=== PATIENT | female | born 1985 | race Caucasian/White ===

== ENCOUNTER 2021-07-30 03:50 | Emergency (ER) | payer OTHER ==
[~2021-07-30] VITALS: Ht 162.6 cm; Wt 76.2 kg
[2021-07-30 05:07] LABS: BASOPHILS % (AUTO) 0.8 % (0.0-5.0); EOSINOPHILS % (AUTO) 4.6 % (0.0-8.0); HEMATOCRIT 37.8 % (36-48); LYMPHOCYTES % (AUTO) 33.9 % (21.0-51.0); MEAN CORPUSCULAR HEMOGLOBIN 29.6 pg (27.0-33.0); MEAN CORPUSCULAR HGB CONC 33.1 g/dL (32.0-36.0); MEAN CORPUSCULAR VOLUME 89.4 fL (79-99); MONOCYTES % (AUTO) 12.9 % (3.0-13.0); NEUTROPHILS % (AUTO) 47.5 % (40.0-77.0); PLATELET COUNT (AUTO) 201 K/uL (130-400); RED BLOOD CELL COUNT(AUTO) 4.23 MIL/uL (4.00-5.50); WHITE BLOOD COUNT (AUTO) 6.6 K/uL (4.8-10.8)
[2021-07-30 05:08] LABS: APPEARANCE,URINE Clear (CLEAR); BILIRUBIN,URINE Negative (NEGATIVE); COLOR,URINE Yellow (YELLOW); GLUCOSE, URINE (UA) Negative (NEGATIVE); KETONES,URINE Negative (NEGATIVE); LEUKOCYTE ESTERASE ,URINE Negative (NEGATIVE); NITRATE,URINE Negative (NEGATIVE); OCCULT BLOOD,URINE Negative (NEGATIVE); PH,URINE 6.5 (5.0-8.0); PROTEIN,URINE Negative (NEGATIVE); UROBILINOGEN,URINE 0.2 mg/dL (0.2-1.0)
[2021-07-30 05:19] LABS: CREATININE 0.7 mg/dL (0.5-1.5); POTASSIUM 3.9 mmol/L (3.5-5.1)
[2021-07-30 05:24] LABS: ALBUMIN 3.6 g/dL (3.5-5.0); BILIRUBIN,TOTAL 0.4 mg/dL (0.2-1.0)
[2021-07-30 06:07] VITALS: BP 102/60
[2021-07-30] MEDS ORDERED: PHENYTOIN SODIUM 100 MG ERCAP PO STA (06:08)
== END 2021-07-30 06:17 ==
LOC: EDH 03:50
DX: G40.909 Epilepsy, unspecified, not intractable, without status epilepticus (principal); Z90.89 Acquired absence of other organs; Z98.890 Other specified postprocedural states
CPT/HCPCS: 36415; 80053; 80185; 81003; 85025

== ENCOUNTER 2021-07-30 22:55 | Emergency (ER) | payer OTHER ==
[2021-07-30 22:57] VITALS: BP 108/74
[2021-07-30 23:15] LABS: EOSINOPHILS % (AUTO) 4.3 % (0.0-8.0); HEMATOCRIT 37.2 % (36-48); LYMPHOCYTES % (AUTO) 34.7 % (21.0-51.0); MEAN CORPUSCULAR HEMOGLOBIN 30.1 pg (27.0-33.0); MEAN CORPUSCULAR HGB CONC 33.6 g/dL (32.0-36.0); MEAN CORPUSCULAR VOLUME 89.6 fL (79-99); MONOCYTES % (AUTO) 11.4 % (3.0-13.0); NEUTROPHILS % (AUTO) 48.4 % (40.0-77.0); PLATELET COUNT (AUTO) 202 K/uL (130-400); RED BLOOD CELL COUNT(AUTO) 4.15 MIL/uL (4.00-5.50); RED CELL DISTRIBUTION WIDTH 13.1 % (11.0-15.5); WHITE BLOOD COUNT (AUTO) 6.3 K/uL (4.8-10.8)
[2021-07-30] MEDS ORDERED: LACTATED RINGERS 1000ML 1,000 ML IV ONE (23:30)
[2021-07-30 23:32] LABS: ALANINE AMINOTRANSFERASE 26 U/L (12-78); ALBUMIN 3.5 g/dL (3.5-5.0); ASPARTATE AMINOTRANSFERASE 15 U/L (10-37); BILIRUBIN,TOTAL 0.3 mg/dL (0.2-1.0); CARBON DIOXIDE 26 mmol/L (21-32); CHLORIDE 106 mmol/L (101-111); CREATININE 0.7 mg/dL (0.5-1.5); GLOMERULAR FILTR. RATE CALC 101 mL/min (>60); GLUCOSE,RANDOM 94 mg/dL (70-105); PHENOBARBITAL 1 mcg/mL (15-40); POTASSIUM 4.1 mmol/L (3.5-5.1); SODIUM SERUM 140 mmol/L (136-145); TOTAL PROTEIN, SERUM 6.9 g/dL (6.0-8.3); UREA NITROGEN, BLOOD 15 mg/dL (7-18)
[2021-07-30 23:38] LABS: PHENYTOIN (DILANTIN) 8.9 mcg/mL (10.0-20.0)
[2021-07-30 23:40] LABS: CARBAMAZEPINE (TEGRETOL) < 0.5 mcg/mL (4.0-12.0); VALPROIC ACID < 3 mcg/mL (50-100)
[2021-07-31] MEDS ORDERED: LEVETIRACETAM 500 MG/5 ML SD VIAL IV SCH (00:30)
[2021-07-31] MEDS ORDERED: ONDANSETRON 4MG INJ ONE (00:46)
[2021-07-31] MEDS ORDERED: ONDANSETRON 4MG INJ IVP ONE (01:00)
== END 2021-07-31 01:34 | disposition home or self-care (01) ==
LOC: EDH 22:55
DX: G40.909 Epilepsy, unspecified, not intractable, without status epilepticus (principal); Z88.0 Allergy status to penicillin; Z90.89 Acquired absence of other organs; Z98.890 Other specified postprocedural states
CPT/HCPCS: 36415; 80053; 80156; 80164; 80184; 80185; 85025; 96361; 96365; 96375; 99284; J1953; J2405; J7120

== ENCOUNTER 2021-08-03 03:02 | Emergency (ER) | payer OTHER ==
[2021-08-03] MEDS ORDERED: PHEN100C23 PO (03:16)
[2021-08-03] MEDS ORDERED: LEVE-43 PO (03:16)
[2021-08-03 03:33] LABS: BASOPHILS % (AUTO) 1.4 % (0.0-5.0); EOSINOPHILS % (AUTO) 5.8 % (0.0-8.0); HEMATOCRIT 34.4 % (36-48); LYMPHOCYTES % (AUTO) 41.7 % (21.0-51.0); MEAN CORPUSCULAR HGB CONC 33.7 g/dL (32.0-36.0); MEAN CORPUSCULAR VOLUME 88.9 fL (79-99); MONOCYTES % (AUTO) 12.8 % (3.0-13.0); NEUTROPHILS % (AUTO) 38.1 % (40.0-77.0); PLATELET COUNT (AUTO) 204 K/uL (130-400); RED BLOOD CELL COUNT(AUTO) 3.87 MIL/uL (4.00-5.50); WHITE BLOOD COUNT (AUTO) 5.7 K/uL (4.8-10.8)
[2021-08-03 03:44] LABS: CREATININE 0.6 mg/dL (0.5-1.5); POTASSIUM 4.2 mmol/L (3.5-5.1)
[2021-08-03 03:51] LABS: ALBUMIN 3.4 g/dL (3.5-5.0); BILIRUBIN,TOTAL 0.2 mg/dL (0.2-1.0); PHENYTOIN (DILANTIN) 11.7 mcg/mL (10.0-20.0); TOTAL PROTEIN, SERUM 6.7 g/dL (6.0-8.3)
[2021-08-03] MEDS ORDERED: LEVETIRACETAM 500 MG/5 ML SD VIAL IV SCH (04:30)
[2021-08-03] MEDS ORDERED: 0.9%NACL 100ML 0 ML ONE (04:30)
[2021-08-03 04:53] VITALS: BP 112/60
[2021-08-03] MEDS ORDERED: PHENYTOIN SODIUM 100 MG ERCAP PO SCH (05:00)
[2021-08-03] MEDS ORDERED: ACETAMINOPHEN 500 MG TABLET PO ONE (05:00)
[2021-08-03] MEDS ORDERED: LEVETIRACETAM 500 MG TABLET PO SCH (05:00)
== END 2021-08-03 05:00 | disposition home or self-care (01) ==
LOC: EDH 03:02
DX: G40.909 Epilepsy, unspecified, not intractable, without status epilepticus (principal); Z88.0 Allergy status to penicillin; Z79.899 Other long term (current) drug therapy
CPT/HCPCS: 36415; 80053; 85025; 80185; 99284; J1953

== ENCOUNTER 2021-08-03 15:03 | Emergency (ER) | payer OTHER ==
[~2021-08-03] VITALS: Ht 160 cm; Wt 68.9 kg
[~2021-08-03 15:03] MED LIST: LEVE-43 PO; PHEN100C23 PO
[2021-08-03 15:29] LABS: BASOPHILS % (AUTO) 1.4 % (0.0-5.0); EOSINOPHILS % (AUTO) 5.6 % (0.0-8.0); HEMATOCRIT 35.3 % (36-48); LYMPHOCYTES % (AUTO) 35.1 % (21.0-51.0); MEAN CORPUSCULAR HEMOGLOBIN 29.8 pg (27.0-33.0); MEAN CORPUSCULAR HGB CONC 33.1 g/dL (32.0-36.0); MEAN CORPUSCULAR VOLUME 89.8 fL (79-99); MONOCYTES % (AUTO) 11.3 % (3.0-13.0); NEUTROPHILS % (AUTO) 46.4 % (40.0-77.0); PLATELET COUNT (AUTO) 180 K/uL (130-400); RED BLOOD CELL COUNT(AUTO) 3.93 MIL/uL (4.00-5.50); RED CELL DISTRIBUTION WIDTH 12.9 % (11.0-15.5); WHITE BLOOD COUNT (AUTO) 4.3 K/uL (4.8-10.8)
[2021-08-03] MEDS ORDERED: ONDANSETRON ODT 4MG TAB SL ONE (15:30)
[2021-08-03] MEDS ORDERED: ACETAMINOPHEN 500 MG TABLET PO ONE (15:30)
[2021-08-03 15:41] LABS: CREATININE 0.7 mg/dL (0.5-1.5); POTASSIUM 4.2 mmol/L (3.5-5.1)
[2021-08-03 15:50] LABS: ALBUMIN 3.5 g/dL (3.5-5.0); BILIRUBIN,TOTAL 0.2 mg/dL (0.2-1.0); PHENYTOIN (DILANTIN) 18.3 mcg/mL (10.0-20.0); TOTAL PROTEIN, SERUM 6.8 g/dL (6.0-8.3)
[2021-08-03] MEDS ORDERED: LEVETIRACETAM 500 MG/5 ML SD VIAL IV SCH (16:00)
[2021-08-03] MEDS ORDERED: 0.9%NACL 1000ML 1,000 ML IV ONE (16:00)
[2021-08-03 18:05] VITALS: BP 98/63
== END 2021-08-03 18:08 | disposition home or self-care (01) ==
LOC: EDH 15:03
DX: G40.909 Epilepsy, unspecified, not intractable, without status epilepticus (principal); Z79.899 Other long term (current) drug therapy; Z88.0 Allergy status to penicillin
CPT/HCPCS: 36415; 80053; 80185; 84484; 85025; 93005; 96361; 96365; 99284; J1953; J7030

== ENCOUNTER 2021-08-04 01:32 | Emergency (ER) | payer OTHER ==
[~2021-08-04] VITALS: Ht 160 cm; Wt 68.9 kg
[2021-08-04 01:49] LABS: BASOPHILS % (AUTO) 1.2 % (0.0-5.0); EOSINOPHILS % (AUTO) 5.5 % (0.0-8.0); HEMATOCRIT 32.3 % (36-48); LYMPHOCYTES % (AUTO) 37.4 % (21.0-51.0); MEAN CORPUSCULAR HEMOGLOBIN 30.5 pg (27.0-33.0); MEAN CORPUSCULAR HGB CONC 33.4 g/dL (32.0-36.0); MEAN CORPUSCULAR VOLUME 91.2 fL (79-99); MONOCYTES % (AUTO) 12.9 % (3.0-13.0); NEUTROPHILS % (AUTO) 42.8 % (40.0-77.0); PLATELET COUNT (AUTO) 173 K/uL (130-400); RED BLOOD CELL COUNT(AUTO) 3.54 MIL/uL (4.00-5.50); RED CELL DISTRIBUTION WIDTH 12.9 % (11.0-15.5); WHITE BLOOD COUNT (AUTO) 5.1 K/uL (4.8-10.8)
[2021-08-04 01:58] LABS: CREATININE 0.6 mg/dL (0.5-1.5); POTASSIUM 3.6 mmol/L (3.5-5.1)
[2021-08-04 02:02] LABS: ALBUMIN 3.3 g/dL (3.5-5.0); BILIRUBIN,TOTAL 0.1 mg/dL (0.2-1.0); TOTAL PROTEIN, SERUM 6.4 g/dL (6.0-8.3)
[2021-08-04 03:30] VITALS: BP 104/63
== END 2021-08-04 03:52 | disposition home or self-care (01) ==
LOC: EDH 01:32
DX: G40.909 Epilepsy, unspecified, not intractable, without status epilepticus (principal); Z79.899 Other long term (current) drug therapy; Z88.0 Allergy status to penicillin
CPT/HCPCS: 36415; 80053; 80185; 85025

== ENCOUNTER 2021-08-04 22:10 | Emergency (ER) | payer OTHER ==
[~2021-08-04] VITALS: Ht 160 cm; Wt 68.9 kg
[2021-08-04] MEDS ORDERED: PHENYTOIN SODIUM 100 MG ERCAP PO SCH (22:30)
[2021-08-04 22:50] LABS: BASOPHILS % (AUTO) 1.1 % (0.0-5.0); EOSINOPHILS % (AUTO) 5.2 % (0.0-8.0); LYMPHOCYTES % (AUTO) 35.5 % (21.0-51.0); MEAN CORPUSCULAR HEMOGLOBIN 29.6 pg (27.0-33.0); MEAN CORPUSCULAR HGB CONC 32.6 g/dL (32.0-36.0); MEAN CORPUSCULAR VOLUME 90.9 fL (79-99); PLATELET COUNT (AUTO) 171 K/uL (130-400); RED BLOOD CELL COUNT(AUTO) 3.85 MIL/uL (4.00-5.50); WHITE BLOOD COUNT (AUTO) 4.7 K/uL (4.8-10.8)
[2021-08-04 23:01] LABS: CREATININE 0.7 mg/dL (0.5-1.5)
[2021-08-04 23:06] LABS: ALBUMIN 3.4 g/dL (3.5-5.0); BILIRUBIN,TOTAL 0.1 mg/dL (0.2-1.0); PHENYTOIN (DILANTIN) 14.6 mcg/mL (10.0-20.0); TOTAL PROTEIN, SERUM 6.6 g/dL (6.0-8.3)
[2021-08-04] MEDS ORDERED: LEVETIRACETAM 500 MG/5 ML SD VIAL IV ONE (23:20)
[2021-08-04 23:46] VITALS: BP 103/64
[2021-08-05] MEDS ORDERED: LEVETIRACETAM 1,500 MG in 0.9%NACL 100ML 100 ML IV SCH (06:00)
== END 2021-08-04 23:48 ==
LOC: EDH 22:10
DX: G40.909 Epilepsy, unspecified, not intractable, without status epilepticus (principal); Z88.0 Allergy status to penicillin; Z79.899 Other long term (current) drug therapy; Z90.89 Acquired absence of other organs; Z98.890 Other specified postprocedural states
CPT/HCPCS: 36415; 71045; 80053; 80177; 80185; 85025; 96374; 99284; J1953

== ENCOUNTER 2021-08-07 05:04 | Emergency (ER) | payer OTHER ==
[~2021-08-07] VITALS: Ht 167.6 cm; Wt 72.6 kg
[2021-08-07 06:14] LABS: BASOPHILS % (AUTO) 0.9 % (0.0-5.0); EOSINOPHILS % (AUTO) 3.1 % (0.0-8.0); HEMATOCRIT 34.3 % (36-48); LYMPHOCYTES % (AUTO) 30.9 % (21.0-51.0); MEAN CORPUSCULAR HEMOGLOBIN 30.1 pg (27.0-33.0); MEAN CORPUSCULAR HGB CONC 33.8 g/dL (32.0-36.0); MEAN CORPUSCULAR VOLUME 89.1 fL (79-99); MONOCYTES % (AUTO) 17.9 % (3.0-13.0); PLATELET COUNT (AUTO) 157 K/uL (130-400); RED BLOOD CELL COUNT(AUTO) 3.85 MIL/uL (4.00-5.50); RED CELL DISTRIBUTION WIDTH 12.8 % (11.0-15.5); WHITE BLOOD COUNT (AUTO) 5.5 K/uL (4.8-10.8)
[2021-08-07 06:21] LABS: CREATININE 0.7 mg/dL (0.5-1.5); POTASSIUM 3.5 mmol/L (3.5-5.1)
[2021-08-07 06:32] LABS: PHENYTOIN (DILANTIN) 23.3 mcg/mL (10.0-20.0)
[2021-08-07 06:59] VITALS: BP 105/66
[2021-08-07] MEDS ORDERED: LEVE10006 PO (22:11)
== END 2021-08-07 07:16 | disposition home or self-care (01) ==
LOC: EDH 05:04
DX: G40.909 Epilepsy, unspecified, not intractable, without status epilepticus (principal); R79.89 Other specified abnormal findings of blood chemistry; Z88.0 Allergy status to penicillin; Z79.899 Other long term (current) drug therapy; Z98.890 Other specified postprocedural states
CPT/HCPCS: 36415; 80048; 80185; 84702; 85025

== ENCOUNTER 2021-08-07 20:23 | Emergency (ER) | payer OTHER ==
[2021-08-07] MEDS ORDERED: LEVETIRACETAM 500 MG/5 ML SD VIAL IV SCH (21:30)
[2021-08-07] MEDS ORDERED: ONDANSETRON 4MG INJ IVP ONE (22:00)
[2021-08-07] MEDS ORDERED: LEVE10006 PO (22:11)
[2021-08-07 22:47] VITALS: BP 120/72
== END 2021-08-07 22:57 | disposition home or self-care (01) ==
LOC: EDH 20:23
DX: G40.909 Epilepsy, unspecified, not intractable, without status epilepticus (principal); Z79.899 Other long term (current) drug therapy; Z88.0 Allergy status to penicillin
CPT/HCPCS: 96365; 96375; 99284; J1953; J2405

== ENCOUNTER 2021-08-08 19:32 | Emergency (ER) | payer OTHER ==
[~2021-08-08] VITALS: Ht 160 cm; Wt 68.9 kg
[~2021-08-08 19:32] MED LIST changes: +LEVE10006 PO
[2021-08-08 19:39] VITALS: BP 126/78
[2021-08-08] MEDS ORDERED: ACETAMINOPHEN 500 MG TABLET PO ONE (21:00)
[2021-08-08 21:01] LABS: EOSINOPHILS % (AUTO) 5.2 % (0.0-8.0); HEMATOCRIT 40.4 % (36-48); LYMPHOCYTES % (AUTO) 27.9 % (21.0-51.0); MEAN CORPUSCULAR HEMOGLOBIN 30.1 pg (27.0-33.0); MEAN CORPUSCULAR HGB CONC 33.4 g/dL (32.0-36.0); MONOCYTES % (AUTO) 13.2 % (3.0-13.0); NEUTROPHILS % (AUTO) 52.5 % (40.0-77.0); PLATELET COUNT (AUTO) 177 K/uL (130-400); RED BLOOD CELL COUNT(AUTO) 4.49 MIL/uL (4.00-5.50); WHITE BLOOD COUNT (AUTO) 4.8 K/uL (4.8-10.8)
[2021-08-08 21:08] LABS: CREATININE 0.8 mg/dL (0.5-1.5); POTASSIUM 4.6 mmol/L (3.5-5.1)
[2021-08-08 21:12] LABS: BILIRUBIN,TOTAL 0.3 mg/dL (0.2-1.0); PHENYTOIN (DILANTIN) 20.8 mcg/mL (10.0-20.0); TOTAL PROTEIN, SERUM 7.7 g/dL (6.0-8.3)
== END 2021-08-08 21:48 | disposition home or self-care (01) ==
LOC: EDH 19:32
DX: G40.909 Epilepsy, unspecified, not intractable, without status epilepticus (principal); Z88.0 Allergy status to penicillin; Z79.899 Other long term (current) drug therapy
CPT/HCPCS: 36415; 80053; 80177; 80185; 85025

== ENCOUNTER 2021-08-09 21:56 | Emergency (ER) | payer OTHER ==
[~2021-08-09] VITALS: Ht 165.1 cm; Wt 68.0 kg
[2021-08-09 22:18] VITALS: BP 116/74
[2021-08-09] MEDS ORDERED: 0.9%NACL 1000ML 1,000 ML IV ONE (23:00)
[2021-08-09] MEDS ORDERED: KETOROLAC 15MG/ML VIAL (15MG/ML) IV ONE (23:00)
[2021-08-09 23:25] LABS: BASOPHILS % (AUTO) 1.3 % (0.0-5.0); EOSINOPHILS % (AUTO) 6.3 % (0.0-8.0); HEMATOCRIT 33.9 % (36-48); LYMPHOCYTES % (AUTO) 38.3 % (21.0-51.0); MEAN CORPUSCULAR HEMOGLOBIN 30.1 pg (27.0-33.0); MEAN CORPUSCULAR HGB CONC 33.3 g/dL (32.0-36.0); MEAN CORPUSCULAR VOLUME 90.2 fL (79-99); MONOCYTES % (AUTO) 10.5 % (3.0-13.0); NEUTROPHILS % (AUTO) 43.4 % (40.0-77.0); PLATELET COUNT (AUTO) 174 K/uL (130-400); RED BLOOD CELL COUNT(AUTO) 3.76 MIL/uL (4.00-5.50); RED CELL DISTRIBUTION WIDTH 13.1 % (11.0-15.5); WHITE BLOOD COUNT (AUTO) 4.5 K/uL (4.8-10.8)
[2021-08-09 23:33] LABS: CREATININE 0.7 mg/dL (0.5-1.5); POTASSIUM 3.5 mmol/L (3.5-5.1)
[2021-08-09 23:38] LABS: ALBUMIN 3.5 g/dL (3.5-5.0); BILIRUBIN,TOTAL 0.1 mg/dL (0.2-1.0); TOTAL PROTEIN, SERUM 6.8 g/dL (6.0-8.3)
[2021-08-09 23:53] LABS: APPEARANCE,URINE CLEAR (CLEAR); BILIRUBIN,URINE NEGATIVE (NEGATIVE); COLOR,URINE YELLOW (YELLOW); GLUCOSE, URINE (UA) NEGATIVE (NEGATIVE); KETONES,URINE NEGATIVE (NEGATIVE); LEUKOCYTE ESTERASE ,URINE NEGATIVE (NEGATIVE); NITRATE,URINE NEGATIVE (NEGATIVE); OCCULT BLOOD,URINE TRACE-INTACT (NEGATIVE); PROTEIN,URINE NEGATIVE (NEGATIVE); UROBILINOGEN,URINE 0.2 mg/dL (0.2-1.0)
[2021-08-10 00:27] LABS: BACTERIA,URINE None Seen /HPF (None Seen); RBC,URINE 0-1 /HPF (0-1); SQUAMOUS EPITHELIAL CELL,UR Moderate /HPF (0-2); WBC,URINE 0-1 /HPF (0-1)
[2021-08-10 00:35] LABS: HCG,QUAL RESULT NEGATIVE (NEGATIVE)
== END 2021-08-10 00:07 | disposition home or self-care (01) ==
LOC: EDH 21:56
DX: G40.909 Epilepsy, unspecified, not intractable, without status epilepticus (principal); R07.89 Other chest pain; R51.9 Headache, unspecified; Z88.0 Allergy status to penicillin; Z79.899 Other long term (current) drug therapy; Z98.890 Other specified postprocedural states
CPT/HCPCS: 36415; 71045; 80053; 81001; 81025; 84484; 85025; 93005; 96361; 96374; 99285; J1885; J7030

== ENCOUNTER 2021-08-12 00:32 | Emergency (ER) | payer OTHER ==
[~2021-08-12] VITALS: Ht 162.6 cm; Wt 76.2 kg
[2021-08-12 02:34] LABS: BASOPHILS % (AUTO) 1.7 % (0.0-5.0); MEAN CORPUSCULAR HGB CONC 33.1 g/dL (32.0-36.0); MEAN CORPUSCULAR VOLUME 90.7 fL (79-99); MONOCYTES % (AUTO) 9.8 % (3.0-13.0); NEUTROPHILS % (AUTO) 34.3 % (40.0-77.0); PLATELET COUNT (AUTO) 184 K/uL (130-400); RED BLOOD CELL COUNT(AUTO) 3.97 MIL/uL (4.00-5.50); RED CELL DISTRIBUTION WIDTH 13.1 % (11.0-15.5); WHITE BLOOD COUNT (AUTO) 4.2 K/uL (4.8-10.8)
[2021-08-12 02:44] LABS: CREATININE 0.7 mg/dL (0.5-1.5); POTASSIUM 3.8 mmol/L (3.5-5.1)
[2021-08-12 03:30] VITALS: BP 101/62
[2021-08-12] MEDS ORDERED: ONDANSETRON ODT 4MG TAB SL ONE (03:30)
[2021-08-12] MEDS ORDERED: ACETAMINOPHEN 500 MG TABLET PO ONE (03:30)
== END 2021-08-12 03:51 | disposition home or self-care (01) ==
LOC: EDH 00:32
DX: G40.909 Epilepsy, unspecified, not intractable, without status epilepticus (principal); Z79.899 Other long term (current) drug therapy; Z88.0 Allergy status to penicillin; Z98.890 Other specified postprocedural states
CPT/HCPCS: 36415; 70450; 80048; 80185; 84703; 85025

== ENCOUNTER 2021-08-30 03:56 | Emergency (ER) | payer OTHER ==
[2021-08-30 04:48] LABS: EOSINOPHILS % (AUTO) 4.2 % (0.0-8.0); HEMATOCRIT 37.9 % (36-48); LYMPHOCYTES % (AUTO) 43.4 % (21.0-51.0); MEAN CORPUSCULAR HEMOGLOBIN 29.7 pg (27.0-33.0); MEAN CORPUSCULAR HGB CONC 33.5 g/dL (32.0-36.0); MEAN CORPUSCULAR VOLUME 88.6 fL (79-99); MONOCYTES % (AUTO) 10.8 % (3.0-13.0); NEUTROPHILS % (AUTO) 40.4 % (40.0-77.0); PLATELET COUNT (AUTO) 182 K/uL (130-400); RED BLOOD CELL COUNT(AUTO) 4.28 MIL/uL (4.00-5.50); RED CELL DISTRIBUTION WIDTH 12.8 % (11.0-15.5); WHITE BLOOD COUNT (AUTO) 5.9 K/uL (4.8-10.8)
[2021-08-30 04:58] LABS: CREATININE 0.8 mg/dL (0.5-1.5); POTASSIUM 3.6 mmol/L (3.5-5.1)
[2021-08-30 05:03] LABS: ALBUMIN 3.7 g/dL (3.5-5.0); BILIRUBIN,TOTAL 0.2 mg/dL (0.2-1.0); PHENYTOIN (DILANTIN) 2.1 mcg/mL (10.0-20.0); TOTAL PROTEIN, SERUM 7.2 g/dL (6.0-8.3)
[2021-08-30 05:46] VITALS: BP 105/65
[2021-08-30] MEDS ORDERED: FOSPHENYTOIN SODIUM 100 MG/2 ML VIAL IV SCH (06:00)
[2021-08-30] MEDS ORDERED: LEVETIRACETAM 500 MG/5 ML SD VIAL IV SCH (06:00)
== END 2021-08-30 06:34 | disposition home or self-care (01) ==
LOC: EDH 03:56
DX: G40.909 Epilepsy, unspecified, not intractable, without status epilepticus (principal); Z88.0 Allergy status to penicillin; Z79.899 Other long term (current) drug therapy; Z98.890 Other specified postprocedural states
CPT/HCPCS: 36415; 80053; 80177; 80185; 85025; 93005; 96374; 96375; 99284; J1953; Q2009